=== PATIENT | male | born 1950 | race American Indian/Alaskan Native ===

== ENCOUNTER 2019-09-14 12:56 | Outpatient (CLI) | payer MEDICARE ==
--- NOTE | 2019-09-14 14:12 | XRay Report ---
LUMBAR SPINE, AP, LATERAL AND OBLIQUE VIEWS 09/14/2019 INDICATION / CLINICAL INFORMATION: M54.5 LOW BACK PAIN. COMPARISON: None available. FINDINGS: Degenerative changes are seen at the L5-S1 disc level. There is slight narrowing of the L3-L4 interspace. Bony alignment is normal. No spondylolysis. No compression fractures. Signer Name: Dereck Costa MD Signed: 09/14/2019 2:08 PM Workstation Name: [email or web address]
== END 2019-09-14 12:57 | disposition home or self-care (01) ==
LOC: XRAY 12:56
PROVIDERS: ATTEND Family Medicine
DX: M47.817 Spondylosis without myelopathy or radiculopathy, lumbosacral region (principal)
CPT/HCPCS: 72110